=== PATIENT | female | born 1965 | race Asian ===

== ENCOUNTER 2018-02-08 23:13 | Emergency (ER) | payer OTHER ==
[~2018-02-08] VITALS: Ht 160 cm; Wt 77.1 kg
[2018-02-08 23:29] VITALS: Ht 160 cm; Wt 77.1 kg
[2018-02-09 00:04] VITALS: BP 125/67
== END 2018-02-09 00:04 | disposition home or self-care (01) ==
LOC: ED 23:13
DX: S80.861A Insect bite (nonvenomous), right lower leg, initial encounter (principal); E11.9 Type 2 diabetes mellitus without complications; W57.XXXA Bitten or stung by nonvenomous insect and other nonvenomous arthropods, initial encounter; Y93.89 Activity, other specified; Y92.89 Other specified places as the place of occurrence of the external cause; Y99.8 Other external cause status
CPT/HCPCS: J7512